=== PATIENT | male | born 1965 ===

== ENCOUNTER 2017-08-17 12:13 | Emergency (ER) | payer OTHER ==
[2017-08-17 12:55] VITALS: BP 160/86; PULSE 72; RESP 20; TEMP 98.1; O2SAT 98
--- NOTE | 2017-08-17 13:13 | ED PDOC ---
Arrival/HPI - General Chief Complaint: Trauma Historian: Patient - History of Present Illness Narrative History of Present Illness (Text): 08/17/17 13:05 Sundar Zamudio is a 52 year old male brought in by daughter, with no significant past medical history, who presents to the emergency department for evaluation s/p trauma yesterday. 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 Patient braced his fall with his right arm and hit his head, notes loss of consciousness. Patient notes shoulder and hand pain. Patient was brought to [facility], where Motrin and a tetanus shot were given. Xrays of the shoulder, wrist, and hand were taken. No impressive results. Patient denies and fever, vomiting, diarrhea, nausea, abdominal pain, chest pain, or any other complaints. Time/Duration: Other (yesterday) Symptom Onset: Sudden Symptom Course: Unchanged Activities at Onset: Significant Context: Work, Tripped Past Medical History - Provider Review Nursing Documentation Reviewed: Yes Family/Social History - Physician Review Nursing Documentation Reviewed: Yes Family/Social History: Unknown Family HX Allergies/Home Meds Allergies/Adverse Reactions: Allergies No Known Allergies Allergy (Verified 08/17/17 12:50) Review of Systems - Physician Review All systems were reviewed & negative as marked: Yes - Review of Systems Constitutional: Normal Eyes: Normal ENT: Normal Respiratory: Normal. absent: SOB, Cough Cardiovascular: Normal. absent: Chest Pain Gastrointestinal: Normal. absent: Abdominal Pain, Diarrhea, Nausea, Vomiting Genitourinary Male: Normal. absent: Dysuria, Frequency, Urinary Output Changes Musculoskeletal: Other (shoulder pain). absent: Back Pain, Neck Pain Skin: Normal. absent: Rash Neurological: Normal. absent: Headache, Dizziness Endocrine: Normal Hemo/Lymphatic: Normal Psychiatric: Normal Physical Exam Vital Signs Reviewed: Yes Vital Signs Temp Pulse Resp BP Pulse Ox 08/17/17 12:50 98.1 F 72 20 160/86 H 98 Temperature: Afebrile Blood Pressure: Normal Pulse: Regular Respiratory Rate: Normal Appearance: Positive for: Well-Appearing, Non-Toxic, Comfortable Pain Distress: None Mental Status: Positive for: Alert and Oriented X 3 - Systems Exam Head: Present: Atraumatic, Normocephalic, Swelling (Temporal region) Pupils: Present: PERRL Extroacular Muscles: Present: EOMI Conjunctiva: Present: Normal Mouth: Present: Moist Mucous Membranes Neck: Present: Normal Range of Motion. No: MIDLINE TENDERNESS, JVD Respiratory/Chest: Present: Clear to Auscultation, Good Air Exchange. No: Respiratory Distress, Accessory Muscle Use Cardiovascular: Present: Regular Rate and Rhythm, Normal S1, S2. No: Murmurs Abdomen: Present: Normal Bowel Sounds. No: Tenderness, Distention, Peritoneal Signs Back: Present: Normal Inspection. No: CVA Tenderness, Midline Tenderness Upper Extremity: Present: Tenderness (Rt anterior shoulder tenderness), Swelling (Rt arm). No: Cyanosis, Edema, Deformity Lower Extremity: Present: Normal Inspection. No: Edema Neurological: Present: GCS=15, CN II-XII Intact, Speech Normal Skin: Present: Warm, Dry, Normal Color. No: Rashes Psychiatric: Present: Alert, Oriented x 3, Normal Insight, Normal Concentration Medical Decision Making ED Course and Treatment: 08/17/17 13:20 Impression: 52 year old male who presents to the ED for evaluation s/p trauma. Differential Diagnosis: Plan: -- CT HEAD -- CT MAXILLOFACIAL -- XRAY RT HAND -- XRAY RT SHOULDER -- XRAY RT WRIST -- Reasses and Disposition Progress Notes: 08/17/17 13:23 Xray Hand reviewed, shows: BONES: Three views of the right hand were performed for right hand pain and trauma. There is once again evidence of a small tracy of bony density on the dorsal aspect of the wrist. Please see wrist x-ray report of same date. Metacarpals and phalanges are intact. No dislocation of the phalanges is seen. No erosions are noted. No periosteal reaction is seen. Distal radius and ulna are intact JOINTS: See above SOFT TISSUES: Normal. OTHER FINDINGS: None. IMPRESSION: No fracture of the hand. Tiny tracy of bony density along the dorsal aspect of the right wrist which may reflect tiny triquetrum will avulsion or degenerative change. Xray Shoulder reviewed, shows: BONES: Three views of the right shoulder were performed for shoulder pain and injury. No dislocation is seen. No fracture is identified. Mild degenerative changes of the glenohumeral region and AC joint are noted. Mild inferior clavicular spurring is also not excluded. Bony scapula is intact as well as the visualized right ribs and clavicle. JOINTS: No dislocation. SOFT TISSUES: Normal. OTHER FINDINGS: None. IMPRESSION: No evidence of fracture or dislocation. Xray Wrist reviewed, shows: BONES: Three views of the right wrist were performed for right wrist pain and trauma. Distal radius and ulna are intact. No abnormal carpal bone widening is noted. Visualized metacarpals are intact. There is some mild soft tissue swelling along the dorsal aspect of the wrist in its midportion. A small tracy of bony density is seen along the dorsal aspect of the right wrist. This may reflect tiny triquetrum fracture or possibly degenerative change. Navicular bone is intact. No chondrocalcinosis is seen. On the lateral view no abnormal bony malalignment is noted. JOINTS: No abnormal carpal bone widening. Mild degenerative changes. SOFT TISSUES: See above OTHER FINDINGS: None. IMPRESSION: Small amount of bony density along the dorsal aspect of the mid wrist which may reflect small triquetrum fracture or degenerative change. CT Maxillofacial reviewed, shows: NASAL BONES: No displaced nasal bone fracture is seen. No nasal cavity masses are noted. ORBITS: Unremarkable. PARANASAL SINUSES/ MASTOIDS: Mild mucosal thickening without evidence of fluid level. Patent ostiomeatal complexes. Mastoid air cells are unremarkable as well as the middle ear cavity regions. MAXILLA: Maxilla are intact. There is mild overlying soft tissue swelling on the right extending towards the inferior orbital region. Temporal bones and zygoma are intact. MANDIBLE/ TEMPOROMANDIBULAR JOINTS: Unremarkable. SKULL BASE: Unremarkable. TEMPORAL BONES: Middle ears and mastoid grossly unremarkable. OTHER FINDINGS: Nasal septum is mildly deviated to the right anteriorly and to the left posteriorly. Posterior nasopharynx is unremarkable a number of small scattered lymph nodes are seen in the neck, more than likely reactive. There is however some mild prominence of the lingual tonsils. Tongue base region is unremarkable. Visualized submandibular glands and parotid glands are unremarkable. IMPRESSION: No appreciable facial bone fracture. No evidence of sinusitis. Nonspecific mild scattered neck lymph nodes. Mild lingual tonsillar hypertrophy. This could be further evaluated with physical exam. CT Head reviewed, shows: HEMORRHAGE: No intracranial hemorrhage. No subdural hematomas. . BRAIN: No mass effect or edema. No atrophy or chronic microvascular ischemic changes. VENTRICLES: Unremarkable. No hydrocephalus. CALVARIUM: Unremarkable. PARANASAL SINUSES: Visualized sinuses appear grossly intact with mild mucosal thickening but no fluid level. Bony structures in the sinuses are intact. MASTOID AIR CELLS: Unremarkable as visualized. No inflammatory changes. OTHER FINDINGS: None. IMPRESSION: No evidence of intracranial hemorrhage. 08/17/17 15:[address] Santos. Put in Volar splint. Told patient to follow up with outpatient. Documented by Yaz Saldana acting as a scribe for Coby Pierce. 08/17/17 19:29 - RAD Interpretation Radiology Orders: 08/17/17 13:04 HEAD W/O CONTRAST [CT] Stat 08/17/17 13:05 MAXILLOFACIAL W/O CONTRAST [CT] Stat 08/17/17 13:06 HAND RIGHT 3 VIEWS [RAD] Stat SHOULDER RIGHT [RAD] Stat WRIST, RIGHT 3 VIEWS [RAD] Stat Disposition/Present on Arrival - Present on Arrival Any Indicators Present on Arrival: No - Disposition Have Diagnosis and Disposition been Completed?: Yes Diagnosis: Fracture of triquetrum, Fracture of triquetrum of right wrist Disposition: HOME/ ROUTINE Disposition Time: 15:00 Patient Plan: Discharge Condition: FAIR Discharge Instructions (ExitCare): Wrist Fracture (DC) Print Language: MALAY Prescriptions: Naproxen 375 mg PO Q8 PRN #21 tablet PRN Reason: Pain, Moderate (4-7) oxyCODONE/Acetaminophen [Percocet 5/325 mg Tab] 1 ea PO Q6 PRN #10 tab PRN Reason: Pain, Severe (8-10) Referrals: Keo Santos MD [Staff Provider] - Forms: [facility] School/Work Excuse
--- NOTE | 2017-08-17 13:59 | RAD ---
PROCEDURE: Radiographs of the Right Shoulder HISTORY: shoulder injury COMPARISON: No prior. FINDINGS: BONES: Three views of the right shoulder were performed for shoulder pain and injury. No dislocation is seen. No fracture is identified. Mild degenerative changes of the glenohumeral region and AC joint are noted. Mild inferior clavicular spurring is also not excluded. Bony scapula is intact as well as the visualized right ribs and clavicle. JOINTS: No dislocation. SOFT TISSUES: Normal. OTHER FINDINGS: None. IMPRESSION: No evidence of fracture or dislocation.
--- NOTE | 2017-08-17 14:01 | RAD ---
PROCEDURE: Right Wrist Radiographs. HISTORY: wrist injury COMPARISON: None. FINDINGS: BONES: Three views of the right wrist were performed for right wrist pain and trauma. Distal radius and ulna are intact. No abnormal carpal bone widening is noted. Visualized metacarpals are intact. There is some mild soft tissue swelling along the dorsal aspect of the wrist in its midportion. A small tracy of bony density is seen along the dorsal aspect of the right wrist. This may reflect tiny triquetrum fracture or possibly degenerative change. Navicular bone is intact. No chondrocalcinosis is seen. On the lateral view no abnormal bony malalignment is noted. JOINTS: No abnormal carpal bone widening. Mild degenerative changes. SOFT TISSUES: See above OTHER FINDINGS: None. IMPRESSION: Small amount of bony density along the dorsal aspect of the mid wrist which may reflect small triquetrum fracture or degenerative change.
--- NOTE | 2017-08-17 14:02 | RAD ---
PROCEDURE: Right Hand Radiographs. HISTORY: hand injury COMPARISON: None. FINDINGS: BONES: Three views of the right hand were performed for right hand pain and trauma. There is once again evidence of a small tracy of bony density on the dorsal aspect of the wrist. Please see wrist x-ray report of same date. Metacarpals and phalanges are intact. No dislocation of the phalanges is seen. No erosions are noted. No periosteal reaction is seen. Distal radius and ulna are intact JOINTS: See above SOFT TISSUES: Normal. OTHER FINDINGS: None. IMPRESSION: No fracture of the hand. Tiny tracy of bony density along the dorsal aspect of the right wrist which may reflect tiny triquetrum will avulsion or degenerative change.
--- NOTE | 2017-08-17 14:16 | CT ---
PROCEDURE: CT HEAD WITHOUT CONTRAST. HISTORY: head injury friday; LOC COMPARISON: None available. TECHNIQUE: Axial computed tomography images were obtained through the head/brain without intravenous contrast. Radiation dose: Total exam DLP = 879 mGy-cm. This CT exam was performed using one or more of the following dose reduction techniques: Automated exposure control, adjustment of the mA and/or kV according to patient size, and/or use of iterative reconstruction technique. FINDINGS: HEMORRHAGE: No intracranial hemorrhage. No subdural hematomas. . BRAIN: No mass effect or edema. No atrophy or chronic microvascular ischemic changes. VENTRICLES: Unremarkable. No hydrocephalus. CALVARIUM: Unremarkable. PARANASAL SINUSES: Visualized sinuses appear grossly intact with mild mucosal thickening but no fluid level. Bony structures in the sinuses are intact. MASTOID AIR CELLS: Unremarkable as visualized. No inflammatory changes. OTHER FINDINGS: None. IMPRESSION: No evidence of intracranial hemorrhage.
--- NOTE | 2017-08-17 14:21 | CT ---
PROCEDURE: CT MAXILLOFACIAL BONES WITHOUT CONTRAST HISTORY: evaluate for facial fx COMPARISON: CT head same day TECHNIQUE: Contiguous axial CT images of the maxillofacial bones were obtained. Coronal and sagittal reformats were generated. Radiation dose: Total exam DLP = 721 mGy-cm. This CT exam was performed using one or more of the following dose reduction techniques: Automated exposure control, adjustment of the mA and/or kV according to patient size, and/or use of iterative reconstruction technique. FINDINGS: NASAL BONES: No displaced nasal bone fracture is seen. No nasal cavity masses are noted. ORBITS: Unremarkable. PARANASAL SINUSES/ MASTOIDS: Mild mucosal thickening without evidence of fluid level. Patent ostiomeatal complexes. Mastoid air cells are unremarkable as well as the middle ear cavity regions. MAXILLA: Maxilla are intact. There is mild overlying soft tissue swelling on the right extending towards the inferior orbital region. Temporal bones and zygoma are intact. MANDIBLE/ TEMPOROMANDIBULAR JOINTS: Unremarkable. SKULL BASE: Unremarkable. TEMPORAL BONES: Middle ears and mastoid grossly unremarkable. OTHER FINDINGS: Nasal septum is mildly deviated to the right anteriorly and to the left posteriorly. Posterior nasopharynx is unremarkable a number of small scattered lymph nodes are seen in the neck, more than likely reactive. There is however some mild prominence of the lingual tonsils. Tongue base region is unremarkable. Visualized submandibular glands and parotid glands are unremarkable. IMPRESSION: No appreciable facial bone fracture. No evidence of sinusitis. Nonspecific mild scattered neck lymph nodes. Mild lingual tonsillar hypertrophy. This could be further evaluated with physical exam.
== END 2017-08-17 15:20 | disposition home or self-care (01) ==
LOC: H.ER 12:13
DX: S62.111A Displaced fracture of triquetrum [cuneiform] bone, right wrist, initial encounter for closed fracture (principal); W17.89XA Other fall from one level to another, initial encounter